=== PATIENT | male | born 1980 | race Caucasian/White ===

== ENCOUNTER 2017-04-25 19:27 | Emergency (ER) | payer OTHER ==
[2017-04-25 19:34] VITALS: BP 180/100; PULSE 86; RESP 18; TEMP 98.3; O2SAT 100
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
== END 2017-04-25 21:09 | disposition home or self-care (01) ==
LOC: H.ER 19:27
DX: S00.83XA Contusion of other part of head, initial encounter (principal); V43.62XA Car passenger injured in collision with other type car in traffic accident, initial encounter; Y92.410 Unspecified street and highway as the place of occurrence of the external cause